=== PATIENT | female | born 1995 | race Caucasian/White ===

== ENCOUNTER → 2017-05-09 | Outpatient (CLI) | payer OTHER ==
[~2017-05-09] MED LIST: AMOXICILLIN500 M3 PO; AMOXIL500 MG PO; ANTIDEPRESSANT; ATARAX25 MG PO; ATIVAN0.5 MG PO; BENTYL10 MG PO; BIRTH CONTROL; BIRTH CONTROL1 EAC1 PO; BIRTH CONTROL1 EACH PO; CELEXA20 MG PO; CIPRO500 MG; CIPRO500 MG PO; DIFLUCAN100 MG PO; FLAGYL500 MG PO; FLEXERIL10 MG PO; IBU-8800 MG PO; LIDEX0.05% T; MEDROL DOSEPAK4 MG PO; METICORTEN1 MG; MOTRIN400 MG PO; MOTRIN600 MG PO; MOTRIN800 MG PO; MULTI-VITAMIN1 EACH PO; Motrin,Rufen800 MG PO; OMEPRAZOLE20 MG PO; OYSTER SHELL CA1 TAB PO; PEPCID20 MG PO; PHENERGAN25 M1 PO; PREDNICOT20 MG PO; PREDNISONE20 MG PO; PRENATAL1 TA7 PO; PRISTIQ50 MG PO; SEASONIQUE1 TA1 PO; TESSALON PERLE100 M1 PO; TYLENOL W/CODEI1 TA2 PO; ULTRAM50 MG PO; VISTARIL25 MG PO; XOPENEX HF0.045 MG/A IH; XOPENEX0.63 MG INH; XOPENEX1.25 MG/0. IH; ZITHROMAX Z PA250 MG PO; ZOFRAN ODT4 MG PO; ZOFRAN ODT4 MG SL; ZOFRAN4 MG PO; ZYRTEC10 MG PO; Zofran4 MG PO
[2017-05-09 18:41] LABS: BASO % 0.2 % (0.0-1.0); EOS # 0.2 10*3/uL (0.0-0.4); EOS % 1.5 % (1.0-4.0); HEMATOCRIT 36.7 % (37.0-47.0); HEMOGLOBIN 11.6 g/dl (12.0-16.0); LYMPH # 3.3 10*3/uL (1.3-4.4); LYMPH % 29.6 % (27.0-41.0); MEAN CORPUSCULAR HGB 25.6 pg (27.0-31.0); MEAN CORPUSCULAR HGB CONC 31.6 g/dl (33.0-37.0); MEAN PLATELET VOLUME 9.9 fl (9.6-12.3); MONO # 0.7 10*3/uL (0.1-1.0); MONO % 6.4 % (3.0-9.0); NEUT # 6.9 10*3/uL (2.3-7.9); PLATELET COUNT AUTOMATED 405 10*3/uL (130-400); RED BLOOD COUNT 4.53 10*6/uL (4.10-5.10); RED CELL DISTRI WIDTH 14.6 % (0-14.5)
== END | disposition home or self-care (01) ==
LOC: LAB 18:10
DX: Z01.818 Encounter for other preprocedural examination (principal); J45.998 Other asthma; R00.0 Tachycardia, unspecified

== ENCOUNTER 2017-09-04 17:59 | Emergency (ER) | payer OTHER ==
[~2017-09-04] VITALS: Ht 162.5 cm; Wt 126.1 kg
[2017-09-04 18:02] VITALS: BP 132/92
[2017-09-04 18:15] LABS: BILIRUBIN NEGATIVE (NEGATIVE); BLOOD NEGATIVE (NEGATIVE); CLARITY CLEAR (CLEAR); COLOR YELLOW (YELLOW); GLUCOSE NEGATIVE (NEGATIVE); KETONE TRACE (NEGATIVE); LEUKO ESTERASE NEGATIVE (NEGATIVE); NITRITE NEGATIVE (NEGATIVE); SPECIFIC GRAVITY 1.015 (1.005-1.030); UROBILINOGEN 0.2 E.U./dl (0.2-1.0)
[2017-09-04 18:19] LABS: BACTERIA 1+; RBC 0-2 rbc/hpf (0-2)
[2017-09-04 18:46] LABS: BASO % 0.3 % (0.0-1.0); EOS # 0.1 10*3/uL (0.0-0.4); EOS % 1.4 % (1.0-4.0); HEMATOCRIT 36.7 % (37.0-47.0); HEMOGLOBIN 11.3 g/dl (12.0-16.0); LYMPH # 2.1 10*3/uL (1.3-4.4); LYMPH % 23.7 % (27.0-41.0); MEAN CELL VOLUME 80.8 fl (81.0-99.0); MEAN CORPUSCULAR HGB 24.9 pg (27.0-31.0); MEAN CORPUSCULAR HGB CONC 30.8 g/dl (33.0-37.0); MONO # 0.6 10*3/uL (0.1-1.0); MONO % 7.1 % (3.0-9.0); NEUT # 6.1 10*3/uL (2.3-7.9); NEUT % 67.4 % (47.0-73.0); PLATELET COUNT AUTOMATED 375 10*3/uL (130-400); RED BLOOD COUNT 4.54 10*6/uL (4.10-5.10); RED CELL DISTRI WIDTH 15.1 % (0-14.5)
[2017-09-04 19:00] LABS: ALBUMIN 3.4 gm/dl (3.1-4.5); ALKALINE PHOSPHATASE 126 U/L (45-117); BUN 16 mg/dl (7-24); CHLORIDE 110 mmol/L (98-107); CREATININE 0.71 mg/dL (0.55-1.02); LIPASE 111 U/L (73-393); SGOT/AST 6 IU/L (3-35); SGPT/ALT 27 U/L (12-78); SODIUM 144 mmol/L (136-145); TOTAL PROTEIN 7.6 gm/dL (6.4-8.2)
== END 2017-09-04 19:37 | disposition home or self-care (01) ==
LOC: ED 17:59
PROVIDERS: Nurse Practitioner Family
DX: K59.00 Constipation, unspecified (principal); Z88.1 Allergy status to other antibiotic agents; Z88.8 Allergy status to other drugs, medicaments and biological substances

== ENCOUNTER 2019-04-07 16:24 | Emergency (ER) | payer SELFPAY ==
[~2019-04-07] VITALS: Ht 162.5 cm; Wt 113.4 kg
[2019-04-07 16:42] VITALS: BP 143/84
== END 2019-04-07 19:15 | disposition home or self-care (01) ==
LOC: ED 16:24
DX: R07.89 Other chest pain (principal); R09.89 Other specified symptoms and signs involving the circulatory and respiratory systems; F41.9 Anxiety disorder, unspecified; R42 Dizziness and giddiness; F32.9 Major depressive disorder, single episode, unspecified; Z88.2 Allergy status to sulfonamides; Z88.8 Allergy status to other drugs, medicaments and biological substances; Z79.899 Other long term (current) drug therapy

== ENCOUNTER → 2019-10-25 | Outpatient (CLI) | payer OTHER ==
[2019-10-25 09:53] LABS: HEMATOCRIT 39.1 % (37.0-47.0); MEAN CELL VOLUME 86.7 fl (81.0-99.0); MEAN CORPUSCULAR HGB 27.7 pg (27.0-31.0); MEAN PLATELET VOLUME 10.2 fl (9.6-12.3); RED BLOOD COUNT 4.51 10*6/uL (4.10-5.10); RED CELL DISTRI WIDTH 13.4 % (0-14.5); WHITE BLOOD COUNT 5.8 10*3/uL (4.8-10.8)
[2019-10-25 10:04] LABS: ALBUMIN 3.5 gm/dl (3.1-4.5); ALKALINE PHOSPHATASE 111 U/L (45-117); BUN 10 mg/dl (7-24); CHLORIDE 110 mmol/L (98-107); CHOLESTEROL 189 mg/dL (<200); CREATININE 0.62 mg/dL (0.55-1.02); HDL CHOLESTEROL 35 mg/dl (40-60); LDL CHOLESTEROL 123 mg/dL (9-159); POTASSIUM 4.1 mmol/L (3.5-5.1); SGOT/AST 13 IU/L (3-35); SGPT/ALT 27 U/L (12-78); SODIUM 136 mmol/L (136-145); TOTAL PROTEIN 7.6 gm/dL (6.4-8.2); TRIGLYCERIDES 157 mg/dl (<150); VLDL CHOLESTEROL 31 mg/dL (6-40)
== END | disposition home or self-care (01) ==
LOC: LAB 09:06
PROVIDERS: ATTEND Physician Assistant
DX: J45.909 Unspecified asthma, uncomplicated (principal); Z82.49 Family history of ischemic heart disease and other diseases of the circulatory system

== ENCOUNTER 2020-01-11 18:24 | Emergency (ER) | payer OTHER ==
[~2020-01-11] VITALS: Ht 167.6 cm; Wt 99.8 kg
[2020-01-11 18:49] VITALS: BP 118/60
[2020-01-11] MEDS ORDERED: IBUPROFEN600 MG PO (20:04)
== END 2020-01-11 20:26 | disposition home or self-care (01) ==
LOC: ED 18:24
DX: S63.501A Unspecified sprain of right wrist, initial encounter (principal); Z88.2 Allergy status to sulfonamides; W20.8XXA Other cause of strike by thrown, projected or falling object, initial encounter; Y93.89 Activity, other specified; Y92.89 Other specified places as the place of occurrence of the external cause; Y99.8 Other external cause status

== ENCOUNTER 2020-08-21 14:17 | Emergency (ER) | payer OTHER ==
[~2020-08-21] VITALS: Ht 162.5 cm; Wt 109.8 kg
[~2020-08-21 14:17] MED LIST changes: +IBUPROFEN600 MG PO
[2020-08-21 14:22] VITALS: BP 124/78
== END 2020-08-21 14:43 | disposition home or self-care (01) ==
LOC: ED 14:17
DX: S80.12XA Contusion of left lower leg, initial encounter (principal); Z88.1 Allergy status to other antibiotic agents; Z88.8 Allergy status to other drugs, medicaments and biological substances; X58.XXXA Exposure to other specified factors, initial encounter; Y93.89 Activity, other specified; Y92.89 Other specified places as the place of occurrence of the external cause; Y99.9 Unspecified external cause status

== ENCOUNTER 2021-08-08 00:36 | Inpatient (IN) | payer OTHER ==
[~2021-08-08] VITALS: Ht 162.5 cm; Wt 124.3 kg
[2021-08-08 00:43] VITALS: BP 143/85
[2021-08-08 01:43] LABS: BASO % 0.2 % (0.0-1.0); EOS # 0.1 10*3/uL (0.0-0.4); EOS % 1.4 % (1.0-4.0); HEMATOCRIT 34.8 % (37.0-47.0); LYMPH # 2.8 10*3/uL (1.3-4.4); LYMPH % 27.8 % (27.0-41.0); MEAN CELL VOLUME 85.5 fl (81.0-99.0); MEAN CORPUSCULAR HGB 28.5 pg (27.0-31.0); MEAN CORPUSCULAR HGB CONC 33.3 g/dl (33.0-37.0); MEAN PLATELET VOLUME 9.5 fl (9.6-12.3); MONO # 0.7 10*3/uL (0.1-1.0); MONO % 6.8 % (3.0-9.0); NEUT # 6.3 10*3/uL (2.3-7.9); NEUT % 63.6 % (47.0-73.0); PLATELET COUNT AUTOMATED 340 10*3/uL (130-400); RED BLOOD COUNT 4.07 10*6/uL (4.10-5.10); RED CELL DISTRI WIDTH 12.8 % (0-14.5); WHITE BLOOD COUNT 9.9 10*3/uL (4.8-10.8)
[2021-08-08 02:03] LABS: ALKALINE PHOSPHATASE 90 U/L (45-117); BUN 14 mg/dl (7-24); CHLORIDE 112 mmol/L (98-107); CREATININE 0.82 mg/dL (0.55-1.02); LIPASE 87 U/L (73-393); POTASSIUM 3.7 mmol/L (3.5-5.1); SGOT/AST 11 IU/L (3-35); SGPT/ALT 24 U/L (12-78); SODIUM 142 mmol/L (136-145); TOTAL PROTEIN 6.7 gm/dL (6.4-8.2)
[2021-08-08 03:15] LABS: BILIRUBIN Negative (Negative); BLOOD Negative (Negative); CLARITY Clear (Clear); COLOR Yellow (Yellow); GLUCOSE Negative (Negative); KETONE Trace (Negative); LEUKO ESTERASE Negative (Negative); NITRITE Negative (Negative); SPECIFIC GRAVITY 1.025 (1.001-1.030); UROBILINOGEN 0.2 E.U./dl (0.0-1.0)
[2021-08-08 03:34] LABS: BACTERIA 1+; RBC 0-2 rbc/hpf (0-2)
[2021-08-08 05:12] VITALS: BP 136/82
[2021-08-08 09:14] VITALS: BP 116/62
[2021-08-08 16:43] VITALS: BP 134/77
[2021-08-08 17:00] VITALS: BP 134/85; BP 136/85
[2021-08-08 20:00] VITALS: BP 118/62
[2021-08-09] VITALS (10 sets, daily range): BP systolic 91–140; BP diastolic 36–90
[2021-08-09 06:14] LABS: CHLORIDE 110 mmol/L (98-107); CREATININE 0.55 mg/dL (0.55-1.02); POTASSIUM 3.7 mmol/L (3.5-5.1); SGOT/AST 8 IU/L (3-35); SGPT/ALT 18 U/L (12-78); SODIUM 140 mmol/L (136-145)
[2021-08-09 06:15] LABS: BASO % 0.1 % (0.0-1.0); EOS # 0.1 10*3/uL (0.0-0.4); EOS % 1.9 % (1.0-4.0); HEMATOCRIT 34.1 % (37.0-47.0); LYMPH # 1.6 10*3/uL (1.3-4.4); LYMPH % 23.6 % (27.0-41.0); MEAN CELL VOLUME 86.5 fl (81.0-99.0); MEAN CORPUSCULAR HGB 28.7 pg (27.0-31.0); MEAN CORPUSCULAR HGB CONC 33.1 g/dl (33.0-37.0); MEAN PLATELET VOLUME 10.2 fl (9.6-12.3); MONO # 0.5 10*3/uL (0.1-1.0); MONO % 6.6 % (3.0-9.0); NEUT # 4.6 10*3/uL (2.3-7.9); NEUT % 67.4 % (47.0-73.0); PLATELET COUNT AUTOMATED 270 10*3/uL (130-400); RED BLOOD COUNT 3.94 10*6/uL (4.10-5.10); RED CELL DISTRI WIDTH 12.8 % (0-14.5); WHITE BLOOD COUNT 6.8 10*3/uL (4.8-10.8)
[2021-08-09 06:27] LABS: ALKALINE PHOSPHATASE 81 U/L (45-117); BUN 10 mg/dl (7-24); CHOLESTEROL 139 mg/dL (<200); FREE T4 1.09 ng/dl (0.76-1.46); LDL CHOLESTEROL 81 mg/dL (9-159); THYROID STIM HORMONE (HS) 0.688 uIU/ml (0.358-4.75); TOTAL PROTEIN 6.1 gm/dL (6.4-8.2); TRIGLYCERIDES 92 mg/dl (<150)
[2021-08-10] VITALS: BP 116/73
[2021-08-10 06:05] LABS: ALKALINE PHOSPHATASE 100 U/L (45-117); BUN 8 mg/dl (7-24); CHLORIDE 108 mmol/L (98-107); CREATININE 0.76 mg/dL (0.55-1.02); POTASSIUM 4.3 mmol/L (3.5-5.1); SGOT/AST 78 IU/L (3-35); SGPT/ALT 65 U/L (12-78); SODIUM 138 mmol/L (136-145); TOTAL PROTEIN 7.3 gm/dL (6.4-8.2)
[2021-08-10 06:47] LABS: BASO % 0.1 % (0.0-1.0); HEMATOCRIT 37.5 % (37.0-47.0); LYMPH # 0.8 10*3/uL (1.3-4.4); LYMPH % 5.7 % (27.0-41.0); MEAN CORPUSCULAR HGB 29.3 pg (27.0-31.0); MEAN CORPUSCULAR HGB CONC 33.3 g/dl (33.0-37.0); MEAN PLATELET VOLUME 10.9 fl (9.6-12.3); MONO # 0.6 10*3/uL (0.1-1.0); MONO % 4.4 % (3.0-9.0); NEUT # 12.3 10*3/uL (2.3-7.9); NEUT % 89.4 % (47.0-73.0); RED BLOOD COUNT 4.26 10*6/uL (4.10-5.10); RED CELL DISTRI WIDTH 12.8 % (0-14.5); WHITE BLOOD COUNT 13.8 10*3/uL (4.8-10.8)
[2021-08-10 06:51] LABS: PLATELET COUNT AUTOMATED 395 10*3/uL (130-400)
[2021-08-10 08:00] VITALS: BP 120/78
[2021-08-10] MEDS ORDERED: COLACE100 MG PO (09:59)
[2021-08-10] MEDS ORDERED: ZOFRAN4 MG PO (09:59)
[2021-08-10] MEDS ORDERED: HYDROCODONE-AC1 EAC1 PO (09:59)
[2021-08-10 12:00] VITALS: BP 124/67
== END 2021-08-10 13:12 | disposition home or self-care (01) | DRG 263 ==
LOC: ED 00:36 → 4E 08:52 → EDHOLD 08:52 → 4E 16:13
PROVIDERS: Emergency Medicine; Internal Medicine; ADMIT Student in an Organized Health Care Education/Training Program; ATTEND Student in an Organized Health Care Education/Training Program
PROC: 0FT44ZZ Resection of Gallbladder, Percutaneous Endoscopic Approach (ICD-10-PCS; principal; 2021-08-09)
PROC: 3E0T3BZ Introduction of Anesthetic Agent into Peripheral Nerves and Plexi, Percutaneous Approach (ICD-10-PCS; 2021-08-09)
DX: K80.50 Calculus of bile duct without cholangitis or cholecystitis without obstruction (principal); K82.8 Other specified diseases of gallbladder; D64.9 Anemia, unspecified; F32.A Depression, unspecified; E44.0 Moderate protein-calorie malnutrition; F41.9 Anxiety disorder, unspecified; Z90.710 Acquired absence of both cervix and uterus; Z68.42 Body mass index [BMI] 45.0-49.9, adult; Z88.2 Allergy status to sulfonamides; Z88.8 Allergy status to other drugs, medicaments and biological substances

== ENCOUNTER 2023-04-11 16:33 | Emergency (ER) | payer BC ==
[~2023-04-11] VITALS: Ht 162.5 cm; Wt 109.8 kg
[~2023-04-11 16:33] MED LIST changes: +COLACE100 MG PO; +HYDROCODONE-AC1 EAC1 PO
[2023-04-11 17:34] VITALS: BP 126/91
[2023-04-11] MEDS ORDERED: CYCLOBENZAPRINE5 M3 PO (18:19)
[2023-04-11] MEDS ORDERED: Ketorolac Tromethamine 30 MG/ML VIAL IM ONE (18:25)
[2023-04-11] MEDS ORDERED: methylPREDNISolone sod succ 125 MG VIAL IM ONE (18:25)
== END 2023-04-11 18:45 | disposition home or self-care (01) ==
LOC: ED 16:33
DX: M54.9 Dorsalgia, unspecified (principal); M25.511 Pain in right shoulder; J45.909 Unspecified asthma, uncomplicated; F32.A Depression, unspecified; Z88.2 Allergy status to sulfonamides; Z88.8 Allergy status to other drugs, medicaments and biological substances; Z98.890 Other specified postprocedural states; Z90.49 Acquired absence of other specified parts of digestive tract; Z90.710 Acquired absence of both cervix and uterus; Z98.51 Tubal ligation status

== ENCOUNTER 2023-05-26 13:30 | Emergency (ER) | payer BC ==
[~2023-05-26] VITALS: Ht 162.5 cm; Wt 108.0 kg
[~2023-05-26 13:30] MED LIST changes: +CYCLOBENZAPRINE5 M3 PO
[2023-05-26 13:41] VITALS: BP 135/78
[2023-05-26] MEDS ORDERED: IBUPROFEN 800 MG TAB PO ONE (13:50)
== END 2023-05-26 15:36 | disposition home or self-care (01) ==
LOC: ED 13:30
DX: S83.91XA Sprain of unspecified site of right knee, initial encounter (principal); Z88.2 Allergy status to sulfonamides; Z79.899 Other long term (current) drug therapy; Z90.49 Acquired absence of other specified parts of digestive tract; Z90.711 Acquired absence of uterus with remaining cervical stump; Z98.51 Tubal ligation status; W18.39XA Other fall on same level, initial encounter; Y93.89 Activity, other specified; Y92.89 Other specified places as the place of occurrence of the external cause; Y99.8 Other external cause status

== ENCOUNTER 2024-04-30 09:36 | Emergency (ER) | payer BC ==
[~2024-04-30] VITALS: Ht 162.5 cm; Wt 104.3 kg
[2024-04-30 09:42] VITALS: BP 134/74
[2024-04-30] MEDS ORDERED: SODIUM CHLORIDE 0.9% 1,000 ML IV ONE (10:20)
[2024-04-30] MEDS ORDERED: Ondansetron4 MG PO (11:52)
== END 2024-04-30 11:55 | disposition home or self-care (01) ==
LOC: ED 09:36
DX: K52.9 Noninfective gastroenteritis and colitis, unspecified (principal); J44.9 Chronic obstructive pulmonary disease, unspecified; Z88.2 Allergy status to sulfonamides; Z88.8 Allergy status to other drugs, medicaments and biological substances; Z90.49 Acquired absence of other specified parts of digestive tract; Z90.710 Acquired absence of both cervix and uterus; Z98.51 Tubal ligation status

== ENCOUNTER → 2024-08-18 | Outpatient (CLI) | payer BC ==
[~2024-08-18] MED LIST changes: +Ondansetron4 MG PO
== END | disposition home or self-care (01) ==
LOC: US 08:30
PROVIDERS: ATTEND Physician Assistant
DX: I35.1 Nonrheumatic aortic (valve) insufficiency (principal); I65.23 Occlusion and stenosis of bilateral carotid arteries; I25.3 Aneurysm of heart; R00.1 Bradycardia, unspecified; R01.1 Cardiac murmur, unspecified; R00.2 Palpitations; H93.A3 Pulsatile tinnitus, bilateral

== ENCOUNTER → 2024-08-20 | Outpatient (CLI) | payer BC | END | disposition home or self-care (01) | LOC: ORTHO 01:14 | PROVIDERS: ATTEND Orthopaedic Surgery | DX: M25.552 Pain in left hip (principal) ==

== ENCOUNTER → 2024-09-17 | Outpatient (CLI) | payer OTHER ==
[~2024-09-17] MED LIST changes: +GADOTERATE MEGLUMINE 5 MMOL/10 ML VIAL IV ONE; +IOHEXOL 240 MG/ML 20 ML SOL IJ ONE; +IOHEXOL 240 MG/ML 20 ML SOL ONE; +Lidocaine Hydrochloride 5 ML AMP ONE; +SODIUM BICARBONATE 4.2% 5 ML VIAL IJ ONE; +SODIUM BICARBONATE 4.2% 5 ML VIAL ONE; +SODIUM CHLORIDE 0.9% 10 ML VIAL IJ ONE; +SODIUM CHLORIDE 0.9% 10 ML VIAL ONE; +SODIUM CHLORIDE 0.9% 500 ML IV ONE
== END | disposition home or self-care (01) ==
LOC: EDSTATUS 09:00
PROVIDERS: ATTEND Orthopaedic Surgery
DX: S73.192A Other sprain of left hip, initial encounter (principal); F32.A Depression, unspecified; J45.909 Unspecified asthma, uncomplicated; I49.8 Other specified cardiac arrhythmias; Z98.890 Other specified postprocedural states; Z90.710 Acquired absence of both cervix and uterus; Z82.49 Family history of ischemic heart disease and other diseases of the circulatory system; Z88.2 Allergy status to sulfonamides; Z88.8 Allergy status to other drugs, medicaments and biological substances; X58.XXXA Exposure to other specified factors, initial encounter; Y93.89 Activity, other specified; Y92.89 Other specified places as the place of occurrence of the external cause; Y99.8 Other external cause status